=== PATIENT | male | born 2005 | race Caucasian/White ===

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

== ENCOUNTER 2025-05-06 20:29 | Emergency (ER) | payer BC, SELFPAY ==
[2025-05-06 20:36] VITALS: BP 135/86; PULSE 80; RESP 14; TEMP 36.7; O2SAT 96; BMI 19.4
--- NOTE | 2025-05-06 20:54 | ED_ITS ---
<Statement entered by Jolly Jorge DO - 05/08/25 23:24> I was consulted by the NALINI, and we discussed the complexity of problems being addressed. I approve the treatment and management plan for this patient's care in the emergency department, thus performing a substantial portion of the medical decision making. Jolly Jorge DO Discharge Plan Disposition Chief Complaint: Dental/Oral Prescriptions Prescriptions: New valacyclovir 1 gram tablet 1,000 mg PO BID 14 Days Qty: 28 0RF docosanol [Abreva] 10 % cream 1 applic topical 5XD Qty: 2 1RF No Action fluticasone propionate [Flonase Allergy Relief] 50 mcg/actuation spray,suspension 1 spray intranasal DAILY Qty: 16 0RF Rx Instructions: administer into each nostril daily cetirizine [Zyrtec] 10 mg tablet 10 mg PO DAILY Qty: 30 0RF Referrals Follow up/Referrals: Provider,Referral, MD [Primary Care Provider, Medical] - See instructions Activity Restrictions/Add. Instructions Additional Instructions/Restrictions: Use the meds as directed. May take Tylenol and ibuprofen on top of that. If not improving please see your PCP in follow-up. Clinical Impressions Clinical Impression: HSV (herpes simplex virus) infection Instructions Patient Instructions: Cold Sores Print Language Print Language: Faroese Discharge ED Provider: Jolly Jorge General Adult HPI General Chief complaint: Dental/Oral Stated complaint: Sores and swelling on inside of mouth Time Seen by Provider: 05/06/25 20:36 Mode of Arrival: Ambulatory Source of Information: Patient Description of Symptoms (Recalled from ER Triage Doc. by RN): Patient presents with fever blisters outside/inside of mouth that started approx 1 week ago. He states he has had them in the past and used OTC meds. History of Present Illness HPI narrative: 19-year-old male presents to the ED today for complaint of fever blisters inside and outside of his mouth that started approximately 1 week ago. He has had them in the past and has only used [id number] meds. But he has had them so bad this week and is unable to eat due to the pain. He says it is getting more difficult to eat and drink. Related Data Previous Rx's ?Medication ?Instructions ?Recorded cetirizine 10 mg tablet (Zyrtec) 10 mg PO DAILY #30 ta bs 06/25/22 fluticasone propionate 50 1 spray intranasal DAILY #16 grams 06/25/22 mcg/actuation nasal spray,suspension (Flonase Allergy Relief) docosanol 10 % topical cream 1 applic topical 5XD #2 g karen 05/06/25 (Abreva) valacyclovir 1 gram tablet 1,000 mg PO BID 14 days #28 tabs 05/06/25 Allergies Allergy/AdvReac Type Severity Reaction Status Date / Time No Known Allergies Allergy Verified 12/17/17 14:25 [facility] Disclaimer: The information contained in this section may have been updated after the patient was seen, as this information can be updated by other users. 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: No Do you have any weakness?: No Do you have any diarrhea?: No Are you experiencing any unusual bleeding?: No Do you have any muscle aches/pain?: No Do you have any abdominal pain?: No Are you experiencing loss of taste or smell?: No Other 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 Have you received the Flu Vaccine for this season: No ROS Obtained: Yes Systems reviewed as appropriate & no additional complaints except as documented Constitutional Constitutional: Reports as per HPI Physical Exam General General appearance: alert Head Head exam: normocephalic Eye Eye exam: Present PERRL and EOMI ENT ENT exam: Present other (Fever blisters and inside and outside his mouth and on his lips) Neck Neck exam: Present full ROM and trachea midline Respiratory Respiratory exam: Present normal lung sounds bilaterally Cardiovascular Cardiovascular exam: Present regular rate, normal rhythm, normal heart sounds, +S1 and +S2 Extremities Exam Extremities exam: Present normal inspection and full ROM Neurological Exam Neurological exam: Present alert and oriented X3 Skin Skin exam: Present warm and dry Medical Decision Making Medical Records Screening: Per USPSTF and CDC recommendations, given the prevalence of disease in our region, it is our hospital?s policy to screen for HIV and viral Hepatitis for all patients aged 18 and over and those with ongoing risk factors. Otto Inquiry Pt receiving controlled substance: No Otto was queried for this patient: No Vital Signs: 05/06/25 20:36 Temperature 98.1 F Temperature Source Oral Pulse Rate [Right Radial] 80 Respiratory Rate 14 Blood Pressure [Right Arm] 135/86 Blood Pressure Mean [Right Arm] 102 Blood Pressure Source [Right Arm] Automatic Cuff Blood Pressure Position [Right Arm] Sitting 02 Sat by Pulse Oximetry 96 Oxygen Delivery Method Room Air Orders (Tests/Meds): ED MEDICATIONS Discontinued Medications Generic Name Dose Route Start Last Admin Trade Name Freq PRN Reason Stop Dose Admin Acyclovir Sodium 500 mg/ 250 mls @ 250 mls/hr 05/06/25 20:46 05/06/25 21:04 Sodium Chloride IV 05/06/25 20:47 250 mls/hr ONCE ONE Administration Ketorolac Tromethamine 30 mg 05/06/25 20:53 05/06/25 21:03 Ketorolac 30mg/Ml Vial IV 05/06/25 20:54 30 mg ONCE ONE Administration Prednisone 40 mg 05/06/25 20:48 05/06/25 21:06 Prednisone 20mg Tab PO 05/06/25 20:49 40 mg ONCE ONE Administration Medical Decision Narrative: patient is a 19-year-old male presenting to the emergency department for evaluation of fever blisters inside and outside his mouth on his lips. Patient is hemodynamically stable and nontoxic-appearing upon arrival, afebrile. Differential diagnosis includes fever blisters, cold sores, infection. Patient will be given acyclovir and Toradol here in the ED. I want him to get this IV so this works quicker gives him some relief. Patient then will receive valacyclovir and Toradol to go home with. Then Abreva for his lips. This should help heal his lips and so he can feel. Patient is stable for discharge home once his IVs have been infused. Patient will be discharged home, patient is stable. Critical Care Critical Care Time Critical Care Time: No
[2025-05-06] MEDS: KETOROLAC 30MG/ML VIAL 30 MG IV (21:03)
[2025-05-06] MEDS: ACYCLOVIR SODIUM 500 MG in 0.9 % SODIUM CHLORIDE 250 ML 250 MG IV (21:04)
[2025-05-06 21:13] VITALS: PULSE 66; O2SAT 99
[2025-05-06 21:15] VITALS: PULSE 76; O2SAT 98
[2025-05-06 21:30] VITALS: BP 121/68; PULSE 81; O2SAT 98
[2025-05-06 21:45] VITALS: PULSE 86; O2SAT 96
[2025-05-06 21:51] VITALS: BP 121/68; PULSE 81; RESP 14; TEMP 36.7; O2SAT 98
== END 2025-05-06 21:51 | disposition home or self-care (01) ==
PROVIDERS: Emergency Provider Student in an Organized Health Care Education/Training Program
DX: B00.1 Herpesviral vesicular dermatitis (principal); F17.200 Nicotine dependence, unspecified, uncomplicated
CPT/HCPCS: 96374; 96375; 99285; J0133; J1885; J7050

== ENCOUNTER 2025-05-13 17:32 | Emergency (ER) | payer BC, SELFPAY ==
[2025-05-13 17:35] VITALS: BP 141/80; PULSE 98; RESP 18; TEMP 37.2; O2SAT 98; BMI 17.8
[2025-05-13 18:10] VITALS: BP 121/76; PULSE 107; O2SAT 98
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
[2025-05-13 18:12] LABS: Microscopic, Urine URINE MICROSCOPIC (MICROSCOPIC)
[2025-05-13 18:15] LABS: Color,Urine YELLOW (Yellow); Glucose,Urine (UA) Negative (Negative); Ketones,Urine 3+ (Negative); Leukocyte Esterase,Urine Negative (Negative); PH,Urine 6.5 (5.0-8.5); Protein,Urine TRACE (Negative); Specific Gravity, Urine 1.025 (1.005-1.030); Urobilinogen,Urine 1.0 EU/dl (0.2)
[2025-05-13 18:31] LABS: Bilirubin,Urine Negative (Negative)
[2025-05-13 18:38] LABS: Hematocrit 47.5 % (42.0-52.0); Hemoglobin 17.2 g/dL (14.1-18.0); Immature Granulocytes % 0.4 %; Mean Corpuscular HGB Conc 36.2 g/dL (31.8-35.4); Mean Corpuscular Hemoglobin 29.4 pg (27.0-31.2); Mean Corpuscular Volume 81.1 fl (80-94); Nucleated Red Blood Cells % 0 %; Platelet Count 259 K/mm3 (142-424); Red Blood Count 5.86 M/mm3 (4.60-6.20); Red Cell Distribution Width-SD 33.6 fL; White Blood Count 7.9 K/mm3 (4.8-10.8)
[2025-05-13 18:42] LABS: Albumin Level 5.6 g/dl (3.5-5.0); Chloride 96 mmol/L (98-107); Potassium 4.4 mmoL/L (3.5-5.1); Sodium 136 mmol/L (136-145)
[2025-05-13 18:45] LABS: Alanine Aminotransferase 19 U/L (12-78); Albumin/Globulin Ratio 1.6 (1.1-1.8); Alkaline Phosphatase 25 U/L (38-126); Anion Gap 21.4 mEq/L (5-15); Aspartate Amino Transferase 29 U/L (17-59); Bilirubin,Total 1.1 mg/dl (0.2-1.3); Blood Urea Nitrogen 22 mg/dl (9-20); Calcium 10.4 mg/dl (8.4-10.2); Carbon Dioxide 23 mmol/L (22.0-30.0); Creatinine Clearance Estimated 110 mL/min (50-200); Creatinine,Serum 0.80 mg/dl (0.66-1.25); Estimated Glomerular Filt Rate 122 ml/min (>60); GFR (African American) 148 ML/MIN (>60); Globulin 3.5 g/dL (1.3-3.2); Glucose 129 mg/dl (74-100); Total Protein,Serum 9.1 g/dl (6.3-8.2)
[2025-05-13 18:46] LABS: Bacteria,Urine 1+ /lpf; Benzodiazepines Screen,Urine Negative ng/ml (<200); Mucus,Urine 2+ /lpf
[2025-05-13 18:47] LABS: Amphetamine/Metha Screen,Urine Negative ng/ml (<1000)
[2025-05-13 18:47] LABS: Adenovirus,PCR Not Detected (NotDetected); Chlamydophila Pneumoniae, PCR Not Detected (NotDetected); Coronavirus 19, PCR Not Detected (NotDetected); Coronovirus HKU1,PCR Not Detected (NotDetected); Influenza A, PCR Not Detected (NotDetected); Influenza AH1, 2009 Not Detected (NotDetected); Influenza AH1, PCR Not Detected (NotDetected); Influenza AH3,PCR Not Detected (NotDetected); Influenza B, PCR Not Detected (NotDetected); Mycoplasma Pneumoniae, PCR Not Detected (NotDetected); Parainfluenza 1, PCR Not Detected (NotDetected); Parainfluenza 2, PCR Not Detected (NotDetected); Parainfluenza 3, PCR Not Detected (NotDetected); Parainfluenza 4, PCR Not Detected (NotDetected)
[2025-05-13 18:48] LABS: Barbiturates Screen,Urine Negative ng/ml (<200)
[2025-05-13 18:48] LABS: Activated Partial Thrombo Time 27.3 seconds (22.8-30.6)
[2025-05-13 18:49] LABS: INR 1.15 (0.9-1.1); Prothrombin Time 12.6 seconds (10.1-12.5)
[2025-05-13 18:50] LABS: Methadone Screen,Urine Negative ng/ml (<300); Opiate Screen,Urine Negative ng/ml (<300)
[2025-05-13 18:51] LABS: Phencyclidine Screen,Urine Negative ng/ml (<25)
[2025-05-13 18:52] LABS: C-Reactive Protein 54.2 mg/L (0-4)
[2025-05-13 19:12] VITALS: BP 133/69; PULSE 86; RESP 18; O2SAT 86
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
[2025-05-13 20:22] VITALS: BP 133/69; PULSE 89; RESP 18; TEMP 37; O2SAT 98
--- NOTE | 2025-05-13 20:54 | PC.NURSE ---
Called for a transfer. stated they would call back m
[2025-05-13 21:03] VITALS: BP 121/63; PULSE 75; RESP 18; TEMP 37; O2SAT 100
[2025-05-13] MEDS: LACTATED RINGERS 1000ML 1,000 ML 999 ML IV (21:44)
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
[2025-05-13 22:34] LABS: Reflex Lactic Add Lactic Reflex
[2025-05-14 10:07] LABS: RPR W/RFX Titers Nonreactive (Nonreactive)
== END 2025-05-13 22:18 | disposition other institution (70) ==
PROVIDERS: Physician Assistant; Emergency Provider Student in an Organized Health Care Education/Training Program
DX: R23.8 Other skin changes (principal); F17.200 Nicotine dependence, unspecified, uncomplicated; R82.5 Elevated urine levels of drugs, medicaments and biological substances
CPT/HCPCS: 0223U; 80053; 80307; 81001; 83605; 85025; 85610; 85651; 85730; 86140; 86592; 87040; 87389; 87491; 87591; 87661; 96360; 99285; J7120